=== PATIENT | male | born 1975 | race Caucasian/White ===

== ENCOUNTER 2021-07-24 12:22 | Outpatient (REF) | payer BC, SELFPAY ==
[2021-08-01 09:42] LABS: Influenza A RNA Ref NOT DETECTED
[2021-08-01 09:43] LABS: Influenza B RNA Ref NOT DETECTED
[2021-08-01 09:59] LABS: SARS CoV2 RNA Ref DETECTED
== END 2021-07-24 12:23 | disposition home or self-care (01) ==
LOC: HO.LAB 12:22
PROVIDERS: Visit Provider Hospitalist
DX: Z20.822 Contact with and (suspected) exposure to COVID-19 (principal)
CPT/HCPCS: 0241U; 36415

== ENCOUNTER 2022-06-01 07:34 | Outpatient (REF) | payer BC, SELFPAY ==
[2022-06-01 11:14] LABS: MANUAL DIFF FLAG NO
[2022-06-01 11:42] LABS: Eosinophils Absolute Auto 0.1 X10*3/uL (0.0-0.4); Hemoglobin 14.2 g/dl (14.0-18.0); Imm Gran Abs Auto 0.01 X10*3/uL (0.00-0.03); Imm Gran Pct Auto 0.3 % (0.0-0.4); Lymphocytes Absolute Auto 1.5 X10*3/uL (1.2-4.9); Lymphocytes Percent Auto 38.6 % (20-40); Mean Corpuscular HGB Conc 32.3 g/dl (31.0-36.0); Mean Corpuscular Hemoglobin 27.8 pg (27.0-33.0); Mean Corpuscular Volume 86.3 fL (80.0-98.0); Mean Platelet Volume 10.1 fL (9.4-12.4); Monocytes Absolute Auto 0.4 X10*3/uL (0.1-1.2); Monocytes Percent Auto 10.9 % (2-11); Neutrophils Absolute Auto 1.9 x10*3/uL (2.0-8.3); Neutrophils Percent Auto 47.2 % (45-73); Platelet Count 273 X10*3/uL (160-400); Red Cell Distribution Width 13.1 % (11.0-16.0); White Blood Count 3.9 X10*3/uL (4.8-10.8)
[2022-06-01 11:48] LABS: Estimated Average Glucose 100 mg/dL; Hemoglobin A1c % 5.1 %
[2022-06-01 12:27] LABS: Ferritin 184 ng/mL (20-250); Free T4 (Free Thyroxine) 0.92 ng/dL (0.71-1.85); Prostate Specific Antigen 0.34 ng/mL (<0.05-4.0); Thyroid Stimulating Hormone 1.73 uIU/mL (0.32-4.0)
[2022-06-01 12:36] LABS: Alanine Aminotransferase 39 U/L (0-40); Albumin Level 4.5 g/dL (3.5-5.0); Alkaline Phosphatase 53 U/L (39-117); Anion Gap 14 (12-20); Aspartate Amino Transferase 34 U/L (5-37); Bilirubin Total 0.7 mg/dL (0.0-1.0); Blood Urea Nitrogen 20 mg/dL (9-16); Calcium 9.4 mg/dL (8.4-10.2); Carbon Dioxide 27 mmol/L (22-29); Chloride 104 mmol/L (96-108); Cholesterol 245 mg/dL; Estimated Glomerular Filt Rate 54; Glucose Random 93 mg/dL (60-115); HDL Cholesterol 61 mg/dL; Iron 142 mcg/dL (45-160); LDL Cholesterol Calculated 170 mg/dl; Percent Iron Saturation 45 % (15-50); Potassium 4.6 mmol/L (3.3-5.1); Sodium 140 mmol/L (135-145); Total Iron Binding Capacity 315 mcg/dL (228-428); Total Protein 6.8 g/dL (6.5-8.0); Triglycerides 72 mg/dL; Unsaturated Iron Binding 173 ug/dL
[2022-06-01 12:37] LABS: Vitamin B12 557 pg/mL (200-900)
[2022-06-01 13:57] LABS: Vitamin D 25-OH Total 23.4 ng/mL (>30)
[2022-06-06 16:11] LABS: Testosterone, Free 75.8 pg/mL (35.0-155.0); Testosterone, Total 549 ng/dL (250-1100)
== END 2022-06-01 07:35 | disposition home or self-care (01) ==
LOC: HO.MANLDS 07:34
PROVIDERS: Visit Provider Physician Assistant
DX: Z12.5 Encounter for screening for malignant neoplasm of prostate (principal); E78.2 Mixed hyperlipidemia; R79.89 Other specified abnormal findings of blood chemistry; Z80.42 Family history of malignant neoplasm of prostate
CPT/HCPCS: 36415; 80053; 80061; 82306; 82607; 82728; 82746; 83036; 83540; 84153; 84402; 84403; 84439; 84443; 85025

== ENCOUNTER 2023-09-22 15:45 | Outpatient (REF) | payer BC, SELFPAY | END 2023-09-22 15:46 | disposition home or self-care (01) | LOC: HO.MANLNP 15:45 | PROVIDERS: Visit Provider Physician Assistant | DX: J02.0 Streptococcal pharyngitis (principal) | CPT/HCPCS: 87070 ==